=== PATIENT | female | born 1980 | race Caucasian/White ===

== ENCOUNTER 2025-03-17 05:22 | Day surgery (SDC) | payer OTHER ==
[2025-03-09 09:46] VITALS: BP 128/87
[2025-03-09 10:08] LABS: BASO % 0.5 % (0.1-1.2); EOS # 0.11 (0.04-0.54); EOS % 2.0 % (0.7-7.0); LYMPH # 1.99 (1.18-3.74); LYMPH % 36.2 % (19.3-53.1); MEAN PLATELET VOLUME 10.80 fl (9.4-12.4); MONO # 0.52 (0.24-0.82); MONO % 9.5 % (4.7-12.5); NEUT # 2.84 (1.56-6.13); NEUT % 51.6 % (34.0-71.1); RED CELL DISTRIBUTION WIDTH 12.9 % (11.6-14.4)
[2025-03-09 10:35] LABS: INR 0.98
[2025-03-09 11:20] LABS: ALT/SGPT 17.0 U/L (12-78); AST/SGOT 16.0 U/L (15-37); BILIRUBIN TOTAL 0.75 mg/dL (0.3-1.2); BUN CREA RATIO 18.0 (7.0-25.0); CREATININE SERUM 0.79 mg/dL (0.55-1.02); GFR 79.43; GLOBULINA 3.5 G/DL (2.4-3.5); GLUCOSE FASTING 94.0 mg/dL (65-100); OSMOLALITY SERUM 283.0 MOSM/KG (275-295)
[~2025-03-17] VITALS: Ht 165.1 cm; Wt 58.5 kg
[~2025-03-17 05:22] MED LIST: PRENATAL CAPLE1 EACH PO
[2025-03-17] MEDS ORDERED: PROMETHAZINE HCL 50 MG/ML AMPUL IM ONE (09:00)
[2025-03-17] MEDS ORDERED: MORPHINE SULFATE 4 MG/ML VIAL IV PRN (09:00)
== END 2025-03-17 11:25 | disposition home or self-care (01) ==
LOC: CIR.AMB 05:22
PROVIDERS: ATTEND Obstetrics & Gynecology
DX: Z30.2 Encounter for sterilization (principal)